=== PATIENT | female | born 1965 | race Caucasian/White ===

== ENCOUNTER 2018-04-17 20:27 | Emergency (ER) | payer SELFPAY ==
--- NOTE | 2018-04-17 21:55 | RAD ---
RIGHT FOREARM TWO VIEWS: 04/17/18 HISTORY: Right arm injury. FINDINGS: Radius and ulna are intact. No acute fracture, dislocation, aggressive osseous erosions, or radiopaqu e foreign bodies. IMPRESSION: No acute osseous abnormalities are demonstrated. POS: [facility]
== END 2018-04-17 22:55 | disposition home or self-care (01) ==
LOC: ERS 20:27
DX: M79.632 Pain in left forearm (principal); M79.631 Pain in right forearm; Z87.891 Personal history of nicotine dependence

== ENCOUNTER 2018-09-11 14:26 | Outpatient (CLI) | payer OTHER ==
--- NOTE | 2018-09-11 15:27 | RAD ---
TWO VIEWS CHEST: DATE: 09/11/2018. PROVIDED CLINICAL HISTORY: Sarcoidosis. FINDINGS: The cardiac and mediastinal silhouette is within normal limits. Lungs appear clear. No pleural flui d or pneumothorax apparent. IMPRESSION: No evidence for an acute cardiopulmonary process. POS: [facility]
== END 2018-09-11 14:27 | disposition home or self-care (01) ==
LOC: BICRAD 14:26
PROVIDERS: ATTEND Internal Medicine Rheumatology
DX: D86.3 Sarcoidosis of skin (principal)
CPT/HCPCS: 71046

== ENCOUNTER 2018-09-17 09:31 | Outpatient (CLI) | payer OTHER ==
--- NOTE | 2018-09-17 11:03 | ULT ---
ABDOMEN ULTRASOUND: HISTORY: Elevated LFTs. FINDINGS: The liver demonstrates increased echogenicity, consistent with fatty infiltration. No focal mass or intrahepatic ductal dilatation is seen. No shadowing gallstones, gallbladder wall thickening, or per icholecystic fluid is noted. The gallbladder wall is at the upper limits of normal in thickness, vicky suring 3 mm. The common duct measures 3 mm in diameter. The pancreas is not well visualized due to overlying bowel gas. The right kidney is normal. No free fluid is seen in the Elias's pouch. IMPRESSION: 1. Fatty liver. 2. No evidence of cholelithiasis. POS: C
== END 2018-09-17 09:32 | disposition home or self-care (01) ==
LOC: ULT 09:31
PROVIDERS: ATTEND Internal Medicine Rheumatology
DX: D86.3 Sarcoidosis of skin (principal); R74.8 Abnormal levels of other serum enzymes
CPT/HCPCS: 76705